=== PATIENT | male | born 1935 | race Caucasian/White ===

== ENCOUNTER 2017-05-21 14:33 | Inpatient (IN) | payer OTHER, MEDICARE ==
[~2017-05-21] VITALS: Ht 190.5 cm; Wt 106.7 kg
[2017-05-21 14:35] VITALS: O2SAT 98
[2017-05-21] MEDS ORDERED: ONDANSETRON HCL 4 MG/2 ML VIAL ONE (14:41)
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
[2017-05-21 15:00] LABS: AUTOMATED NEUTROPHIL # 5.9 TH/MM3 (1.8-7.7); BASOPHIL # 0.1 TH/MM3 (0-0.2); BASOPHIL % 0.8 % (0.0-2.0); EOSINOPHIL # 0.3 TH/MM3 (0-0.4); EOSINOPHIL % 3.5 % (0.0-4.0); HEMATOCRIT 39.1 % (39.0-51.0); HEMO FLAGS DIFF FINAL; LYMPH % 22.2 % (9.0-44.0); MEAN CELL VOLUME 93.4 FL (80.0-100.0); MEAN CORPUSCULAR HEMOGLOBIN 31.8 PG (27.0-34.0); MONO % 6.5 % (0.0-8.0); PLATELET COUNT 182 TH/MM3 (150-450); RED BLOOD COUNT 4.19 MIL/MM3 (4.50-5.90); RED CELL DISTRIBUTION WIDTH 13.8 % (11.6-17.2); WHITE BLOOD COUNT 8.8 TH/MM3 (4.0-11.0)
[2017-05-21 15:03] LABS: I-STAT POTASSIUM 4.1 MMOL/L (3.5-4.9)
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
[2017-05-21 15:16] LABS: APTT (PATIENT) 20.7 SEC (24.3-30.1); PROTHROMBIN TIME - PATIENT 10.8 SEC (9.8-11.6)
[2017-05-21] MEDS ORDERED: IOHEXOL 350 MG/ML 10 ML VIAL (for RAD DIAG) IV ONE (15:29)
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
[2017-05-21 16:00] VITALS: BP 107/58; PULSE 60; PULSE 64; RESP 20; TEMP 97.5; O2SAT 99
[2017-05-21] MEDS ORDERED: CHLORHEXIDINE GLUCONATE 2 % 1 PACK (2 CLOTHS) TOP PRN (16:00)
[2017-05-21] MEDS ORDERED: SODIUM CHLORIDE 0.9% FLUSH 10 ML FLUSH IV FLUSH PRN (16:00)
[2017-05-21] MEDS ORDERED: PANTOPRAZOLE SODIUM 40 MG VIAL IVP SCH (16:00)
[2017-05-21] MEDS ORDERED: MISCELLANEOUS NURSING INFORMATION XX SCH (16:00)
[2017-05-21 16:01] LABS: HEMATOCRIT 34.9 % (39.0-51.0); MEAN CELL VOLUME 92.6 FL (80.0-100.0); MEAN CORPUSCULAR HEMOGLOBIN 31.1 PG (27.0-34.0); MEAN CORPUSCULAR HGB CONC 33.5 % (32.0-36.0); PLATELET COUNT 138 TH/MM3 (150-450); RED BLOOD COUNT 3.76 MIL/MM3 (4.50-5.90); RED CELL DISTRIBUTION WIDTH 14.7 % (11.6-17.2); REVIEW FLAG FINAL; WHITE BLOOD COUNT 7.5 TH/MM3 (4.0-11.0)
[2017-05-21 16:05] VITALS: O2SAT 100
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
[2017-05-21 16:14] LABS: APTT (PATIENT) 23.6 SEC (24.3-30.1); INTERNATIONAL NORMALIZED RATIO 1.1 RATIO; PROTHROMBIN TIME - PATIENT 11.9 SEC (9.8-11.6)
[2017-05-21 16:24] LABS: ALT (GPT) 38 U/L (12-78); ANION GAP 5 MEQ/L (5-15); AST (GOT) 45 U/L (15-37); BICARBONATE 26.9 MEQ/L (21.0-32.0); BLOOD UREA NITROGEN 24 MG/DL (7-18); CHLORIDE 112 MEQ/L (98-107); GLOMERULAR FILTRATION RATE 42 ML/MIN (>89); POTASSIUM 4.5 MEQ/L (3.5-5.1); SODIUM (NA) 144 MEQ/L (136-145)
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
[2017-05-21 16:31] LABS: ALKALINE PHOSPHATASE 55 U/L (45-117); TOTAL BILIRUBIN ADULT 0.4 MG/DL (0.2-1.0)
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
[2017-05-21 18:00] VITALS: PULSE 64
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
[2017-05-21] MEDS: SODIUM CHLOR 0.9% 1000 ML INJ 1,000 ML IV SCH (18:12)
[2017-05-21] MEDS ORDERED: fentaNYL CITRATE 250 MCG/5 ML AMP ONE (18:21)
[2017-05-21] MEDS ORDERED: MIDAZOLAM HCL 5 MG/5 ML VIAL ONE (18:21)
--- NOTE | 2017-05-21 19:10 | PD.RAD ---
Post Procedure Progress Note Pre Procedure Diagnosis: (1) Pelvic hematoma, male Post Procedure Diagnosis: (1) Pelvic hematoma, male Procedure Date: May 21, 2017 Supervising Radiologist: Ruddy Ash Estimated blood loss: None Anesthesia: Local, Conscious Sedation Plan of Activity Patient to Unit: Critical Care Patient Condition: Fair Additional Comments: Pelvic angio completed with subselective evaluation of multiple lumbar arteries No active bleed identified Full dictated report to follow. See PACS Report for procedural detail/treatment Ruddy Ash MD May 21, 2017 19:10
[2017-05-21] MEDS ORDERED: IODIXANOL 320 MG/ML 50 ML VIAL (for RAD SPEC) I-ARTERIAL ONE (19:31)
[2017-05-21 20:00] VITALS: BP 131/63; PULSE 69; RESP 20; TEMP 98.1; O2SAT 98
[2017-05-21 22:00] VITALS: PULSE 62
[2017-05-21] MEDS: ONDANSETRON HCL 4 MG/2 ML VIAL IV PRN (22:09)
[2017-05-21 22:23] LABS: HEMATOCRIT 35.5 % (39.0-51.0); REVIEW FLAG FINAL
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
[2017-05-21] MEDS: HYDROmorphone HCL PF 1 MG/ML VIAL IV PUSH PRN (22:49)
[2017-05-22] VITALS (11 sets, daily range): BP systolic 99–142; BP diastolic 55–80; PULSE 58–77; RESP 14–21; TEMP 97.4–99; O2SAT 93–99
[2017-05-22 01:05] LABS: HEMATOCRIT 38.2 % (39.0-51.0); REVIEW FLAG FINAL
[2017-05-22] MEDS: SODIUM CHLOR 0.9% 1000 ML INJ 1,000 ML IV SCH ×3 (02:37→20:49)
[2017-05-22] MEDS: HYDROmorphone HCL PF 1 MG/ML VIAL IV PUSH PRN ×2 (02:42→18:23)
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
[2017-05-22] MEDS: CHLORHEXIDINE GLUCONATE 2 % 1 PACK (2 CLOTHS) TOP SCH (04:20)
[2017-05-22 04:21] LABS: AUTOMATED NEUTROPHIL # 6.4 TH/MM3 (1.8-7.7); BASOPHIL % 0.1 % (0.0-2.0); EOSINOPHIL % 0.1 % (0.0-4.0); HEMO FLAGS DIFF FINAL; LYMPH % 7.4 % (9.0-44.0); LYMPHOCYTE # 0.6 TH/MM3 (1.0-4.8); MEAN CELL VOLUME 90.4 FL (80.0-100.0); MEAN CORPUSCULAR HEMOGLOBIN 31.2 PG (27.0-34.0); MEAN CORPUSCULAR HGB CONC 34.5 % (32.0-36.0); MONO % 7.9 % (0.0-8.0); NEUT % 84.5 % (16.0-70.0); PLATELET COUNT 110 TH/MM3 (150-450); RED BLOOD COUNT 3.76 MIL/MM3 (4.50-5.90); WHITE BLOOD COUNT 7.5 TH/MM3 (4.0-11.0)
[2017-05-22 04:38] LABS: ANION GAP 7 MEQ/L (5-15); AST (GOT) 100 U/L (15-37); BICARBONATE 23.2 MEQ/L (21.0-32.0); BLOOD UREA NITROGEN 27 MG/DL (7-18); CHLORIDE 114 MEQ/L (98-107); GLOMERULAR FILTRATION RATE 46 ML/MIN (>89); POTASSIUM 4.8 MEQ/L (3.5-5.1); SODIUM (NA) 144 MEQ/L (136-145)
[2017-05-22 04:41] LABS: ALKALINE PHOSPHATASE 48 U/L (45-117); ALT (GPT) 54 U/L (12-78); TOTAL BILIRUBIN ADULT 0.7 MG/DL (0.2-1.0)
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
[2017-05-22] MEDS ORDERED: MAGNESIUM SULFATE INJ 4 GM in SODIUM CHLORIDE 0.9% INJ 92 ML IV PRN (07:45)
[2017-05-22] MEDS ORDERED: MAGNESIUM SULFATE INJ 2 GM in SODIUM CHLORIDE 0.9% INJ 96 ML IV PRN (07:45)
[2017-05-22] MEDS ORDERED: SODIUM PHOSPHATE INJ 30 MMOL in SODIUM CHLOR 0.9% 250 ML INJ 240 ML IV PRN (07:45)
[2017-05-22] MEDS ORDERED: POTASSIUM PHOSPHATE INJ 30 MMOL in SODIUM CHLOR 0.9% 250 ML INJ 250 ML IV PRN (07:45)
[2017-05-22] MEDS ORDERED: POTASSIUM CHLOR 40 MEQ PREMIX 100 ML IV PRN ×2 (07:45)
[2017-05-22] MEDS ORDERED: POTASSIUM PHOSPHATE MONOBASIC 500 MG TAB PO/TUBE PRN (07:45)
[2017-05-22] MEDS ORDERED: POTASSIUM CHLOR 20 MEQ PREMIX 100 ML IV PRN ×2 (07:45)
[2017-05-22] MEDS ORDERED: POTASSIUM PHOSPHATE MONOBASIC 500 MG TAB PO PRN (07:45)
[2017-05-22] MEDS ORDERED: MAGNESIUM OXIDE 400 MG TAB PO PRN (07:45)
[2017-05-22] MEDS ORDERED: LACTATED RINGER'S 1000 ML INJ 1,000 ML IV ONE ×2 (07:45→15:45)
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
[2017-05-22] MEDS: DOCUSATE SODIUM 100 MG CAP PO SCH ×2 (12:28→20:44)
[2017-05-22] MEDS: ONDANSETRON HCL 4 MG/2 ML VIAL IV PRN (14:27)
[2017-05-22] MEDS: MAGNESIUM HYDROXIDE SUSP 30 ML CUP PO SCH (20:44)
[2017-05-22] MEDS ORDERED: SODIUM CHLORID 0.9% 500 ML INJ 500 ML IV SCH (23:00)
[2017-05-23] VITALS: BP 133/63; PULSE 76; RESP 16; TEMP 97.9; O2SAT 94
[2017-05-23] MEDS: CHLORHEXIDINE GLUCONATE 2 % 1 PACK (2 CLOTHS) TOP SCH (03:26)
[2017-05-23 04:00] VITALS: BP 143/68; PULSE 82; RESP 18; TEMP 96.9; O2SAT 95
[2017-05-23] MEDS: HYDROmorphone HCL PF 1 MG/ML VIAL IV PUSH PRN ×2 (05:51→10:32)
[2017-05-23] MEDS: SODIUM CHLOR 0.9% 1000 ML INJ 1,000 ML IV SCH (05:54)
[2017-05-23 07:06] LABS: AUTOMATED NEUTROPHIL # 4.5 TH/MM3 (1.8-7.7); BASOPHIL % 0.2 % (0.0-2.0); EOSINOPHIL # 0.1 TH/MM3 (0-0.4); EOSINOPHIL % 1.4 % (0.0-4.0); HEMATOCRIT 29.4 % (39.0-51.0); LYMPH % 9.4 % (9.0-44.0); LYMPHOCYTE # 0.5 TH/MM3 (1.0-4.8); MEAN CELL VOLUME 91.4 FL (80.0-100.0); MEAN CORPUSCULAR HGB CONC 33.9 % (32.0-36.0); MONO % 9.5 % (0.0-8.0); NEUT % 79.5 % (16.0-70.0); PLATELET COUNT 82 TH/MM3 (150-450); RED BLOOD COUNT 3.21 MIL/MM3 (4.50-5.90); RED CELL DISTRIBUTION WIDTH 15.8 % (11.6-17.2); WHITE BLOOD COUNT 5.7 TH/MM3 (4.0-11.0)
[2017-05-23 07:09] LABS: ALT (GPT) 58 U/L (12-78); ANION GAP 6 MEQ/L (5-15); AST (GOT) 92 U/L (15-37); BLOOD UREA NITROGEN 22 MG/DL (7-18); CHLORIDE 113 MEQ/L (98-107); GLOMERULAR FILTRATION RATE 56 ML/MIN (>89); MAGNESIUM 2.1 MG/DL (1.5-2.5); POTASSIUM 4.2 MEQ/L (3.5-5.1); SODIUM (NA) 143 MEQ/L (136-145)
[2017-05-23 07:10] LABS: ALKALINE PHOSPHATASE 62 U/L (45-117); TOTAL BILIRUBIN ADULT 0.6 MG/DL (0.2-1.0)
[2017-05-23 07:17] LABS: HEMO FLAGS AUTO DIFF
[2017-05-23 07:29] VITALS: BP 130/63; PULSE 70; RESP 18; TEMP 96.9; O2SAT 90
[2017-05-23 08:22] LABS: PLATELET ESTIMATE SMEAR LOW (NORMAL); PLATELET MORPHOLOGY NORMAL (NORMAL)
[2017-05-23 08:23] LABS: SCAN/DIFF AUTO DIFF CONFIRMED
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
[2017-05-23] MEDS: DOCUSATE SODIUM 100 MG CAP PO SCH ×2 (10:27→21:35)
[2017-05-23] MEDS: ENOXAPARIN SODIUM 30 MG/0.3 ML SYRINGE SQ SCH ×2 (10:27→21:35)
[2017-05-23 11:55] VITALS: BP 149/70; PULSE 72; RESP 18; TEMP 98.3; O2SAT 91
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
[2017-05-23] MEDS ORDERED: ENOX30P SQ (14:44)
[2017-05-23] MEDS ORDERED: OXYC-392 PO (14:44)
[2017-05-23] MEDS ORDERED: DOCU1CAP39 PO (14:44)
[2017-05-23] MEDS ORDERED: FAMO1TAB37 PO (14:44)
[2017-05-23] MEDS ORDERED: MAGN400S PO (14:44)
[2017-05-23 15:53] VITALS: BP 128/63; PULSE 71; RESP 18; TEMP 96.5; O2SAT 93
[2017-05-23] MEDS: ONDANSETRON HCL 4 MG/2 ML VIAL IV PRN (17:39)
[2017-05-23 19:51] VITALS: BP 152/69; PULSE 80; RESP 18; TEMP 98.9; O2SAT 93
[2017-05-23] MEDS: MAGNESIUM HYDROXIDE SUSP 30 ML CUP PO SCH (21:35)
[2017-05-24 00:17] VITALS: BP 168/72; PULSE 81; RESP 18; TEMP 99; O2SAT 92
[2017-05-24 04:30] VITALS: BP 119/70; PULSE 75; RESP 18; TEMP 99.1; O2SAT 93
[2017-05-24 06:30] LABS: HEMATOCRIT 26.9 % (39.0-51.0); MEAN CELL VOLUME 91.1 FL (80.0-100.0); MEAN CORPUSCULAR HGB CONC 34.1 % (32.0-36.0); PLATELET COUNT 85 TH/MM3 (150-450); RED BLOOD COUNT 2.95 MIL/MM3 (4.50-5.90); RED CELL DISTRIBUTION WIDTH 15.4 % (11.6-17.2); WHITE BLOOD COUNT 4.9 TH/MM3 (4.0-11.0)
[2017-05-24 06:39] LABS: REVIEW FLAG FINAL
[2017-05-24 06:57] LABS: BICARBONATE 27.6 MEQ/L (21.0-32.0); POTASSIUM 4.2 MEQ/L (3.5-5.1)
[2017-05-24 07:55] VITALS: BP 137/64; PULSE 73; RESP 18; TEMP 98.6; O2SAT 92
[2017-05-24] MEDS ORDERED: BISACODYL EC 5 MG TABEC PO ONE (08:15)
[2017-05-24] MEDS: DOCUSATE SODIUM 100 MG CAP PO SCH (09:52)
[2017-05-24] MEDS: ENOXAPARIN SODIUM 30 MG/0.3 ML SYRINGE SQ SCH (09:53)
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
== END 2017-05-24 11:45 | DRG 963 ==
LOC: NEPI 14:33 → NEDA 15:03 → EDBD 15:03 → N03A 16:26 → N06B 05-22 18:00
PROVIDERS: ADMIT Surgery; ATTEND Surgery
PROC: 30233N1 Transfusion of Nonautologous Red Blood Cells into Peripheral Vein, Percutaneous Approach (ICD-10-PCS; principal; 2017-05-21)
DX: S36.892A Contusion of other intra-abdominal organs, initial encounter (principal); R57.1 Hypovolemic shock; S32.591A Other specified fracture of right pubis, initial encounter for closed fracture; N17.9 Acute kidney failure, unspecified; D62 Acute posthemorrhagic anemia; S32.10XA Unspecified fracture of sacrum, initial encounter for closed fracture; S32.301A Unspecified fracture of right ilium, initial encounter for closed fracture; S32.592A Other specified fracture of left pubis, initial encounter for closed fracture; I10 Essential (primary) hypertension; S30.1XXA Contusion of abdominal wall, initial encounter; V49.50XA Passenger injured in collision with unspecified motor vehicles in traffic accident, initial encounter; Y92.410 Unspecified street and highway as the place of occurrence of the external cause
CPT/HCPCS: 36430; 70450; 71010; 71260; 72125; 72131; 72170; 74177; 80048; 80053; 82435; 82565; 82947; 83605; 83735; 84132; 84295; 84520; 85014; 85018; 85025; 85027; 85384; 85610; 85730; 86850; 86900; 86901; 86920; 87641; 94150; 94640; 94667; 94668; 96374; 99291; C1760; C1769; C1887; C1894; G0390; J1170; J1650; J2250; J2405; J3010; J7030; J7040; J7120; L0150; L0172; P9016; P9021; Q9967